=== PATIENT | female | born 1975 | race Caucasian/White ===

== ENCOUNTER 2018-12-26 06:00 | Day surgery (SDC) | payer BC ==
[~2018-12-26] VITALS: Ht 165.1 cm; Wt 63.7 kg
[2018-12-26 06:44] VITALS: BP 154/80
[2018-12-26] MEDS ORDERED: SODIUM CHLORIDE 0.9% 1,000 ML IV SCH (06:47)
[2018-12-26] MEDS ORDERED: DEXTROSE 50%, 50ML SYRINGE IVPush ONE (07:30)
[2018-12-26 07:47] LABS: INTERNATIONAL NORMALIZED RATIO 0.88 (0.93-1.1); PROTHROMBIN TIME 9.3 Seconds (9.6-11.5)
[2018-12-26] MEDS ORDERED: FENTANYL PF 100 MCG/2ML ONE (08:49)
[2018-12-26] MEDS ORDERED: NALOXONE 1 MG/ML, 2ML ONE (08:49)
[2018-12-26] MEDS ORDERED: MIDAZOLAM 1 MG/ML, 5ML ONE (08:49)
[2018-12-26] MEDS ORDERED: FLUMAZENIL 0.1 MG/1 ML, 5ML ONE (08:49)
== END 2018-12-26 11:00 | disposition home or self-care (01) ==
LOC: OUT 06:00
PROVIDERS: ATTEND Internal Medicine Nephrology
DX: E11.21 Type 2 diabetes mellitus with diabetic nephropathy (principal); E11.22 Type 2 diabetes mellitus with diabetic chronic kidney disease; I12.9 Hypertensive chronic kidney disease with stage 1 through stage 4 chronic kidney disease, or unspecified chronic kidney disease; N18.4 Chronic kidney disease, stage 4 (severe); E11.40 Type 2 diabetes mellitus with diabetic neuropathy, unspecified; F17.210 Nicotine dependence, cigarettes, uncomplicated; Z90.49 Acquired absence of other specified parts of digestive tract; Z98.890 Other specified postprocedural states; Z79.84 Long term (current) use of oral hypoglycemic drugs
CPT/HCPCS: 36415; 50200; 77012; 82962; 85610; 88300; 99156; J2250; J3010; J7030; 99157; J2310